=== PATIENT | female | born 1970 | race Caucasian/White ===

== ENCOUNTER 2016-10-18 18:26 | Inpatient (IN) | payer OTHER ==
[~2016-10-18] VITALS: Ht 162.6 cm; Wt 54.4 kg
--- NOTE | 2016-10-18 19:40 | NUR ---
PRE - ADMISSION NOTE : ADMISSION NOTE : The patient is a 46-year-old female who presents to [facility] for evaluation of medically supervised withdrawal from alcohol on 10/18/2016. Pt. is NKA, FULL CODE, on Reg. Diet. The patient reports recently achieving 10.5 months of sobriety but relapsed two days ago. She reports the cause of the relapse was due to increased negative emotions related to going through divorce, which led to an increased sense of cravings and cognitive dissonance. For the last two days, she reports consuming 750 mL of vodka on a daily basis, last used on the day of present admission. This morning while drinking, she reportedly sustained a ground level fall complicated by closed head injury to the posterior occipital with short-term loss of consciousness, reportedly <15 seconds, witnessed by her boyfriend. She has struggled with multiple attempts at sobriety, the longest being for eight years, which ended two years ago. She has been to multiple treatment programs in the past, the latest being at [facility]. She states her alcohol use has negatively impacted her life by impairing close relationships with family and negatively impacting her physical and mental health. She reports uncertainty about the barriers she will have to overcome to achieve full, long-term sobriety. The patient reports a history of withdrawal-induced seizures x10 , first episode in 2012. Upon assessment pt. is alert and oriented x4, the patient was acutely intoxicated without evidence of withdrawal, YE=172/70, JY=294, Temp=98.2, RR16, even and unlabored, SpO2=98% with RA. Nfhcps=609 lbs, Height=54 . CIWA=5 , last BM was on 10/16/2016 . Pt's skin is warm, dry , no open wounds visible, bruises on the chin, on both arms with scratches. Pt. will be admitted to the Unit.
[2016-10-18 20:21] LABS: *URINE HCG, QUAL NEGATIVE (NEGATIVE)
[2016-10-18 20:30] LABS: *AMPHETAMINE, URINE NEGATIVE (NEGATIVE); *BARBITURATE, URINE NEGATIVE (NEGATIVE); *CANNABINOID, URINE NEGATIVE (NEGATIVE); *COCCAINE, URINE NEGATIVE (NEGATIVE); *OPIATE, URINE NEGATIVE (NEGATIVE); *PHENCYCLIDINE SCREEN,URINE NEGATIVE (NEGATIVE)
--- NOTE | 2016-10-18 20:45 | NUR ---
ADMISSION NOTE : The patient is a 46-year-old female who presents to [facility] for evaluation of medically supervised withdrawal from alcohol on 10/18/2016. Pt. is NKA, FULL CODE, on Reg. Diet. . Pt. reports her PCP is Dr. Cruz from [place], [place]. The patient reports recently achieving 10.5 months of sobriety but relapsed two days ago. She reports the cause of the relapse was due to increased negative emotions related to going through divorce, which led to an increased sense of cravings and cognitive dissonance. For the last two days, she reports consuming 750 mL of vodka on a daily basis, last used on the day of present admission. This morning while drinking, she reportedly sustained a ground level fall complicated by closed head injury to the posterior occipital with short-term loss of consciousness, reportedly <15 seconds, witnessed by her boyfriend. She has struggled with multiple attempts at sobriety, the longest being for eight years, which ended two years ago. She has been to multiple treatment programs in the past, the latest being at [facility]. She states her alcohol use has negatively impacted her life by impairing close relationships with family and negatively impacting her physical and mental health. She reports uncertainty about the barriers she will have to overcome to achieve full, long-term sobriety. The patient reports a history of withdrawal-induced seizures x10 , first episode in 2012. Upon assessment pt. is alert and oriented x4, the patient was acutely intoxicated without evidence of withdrawal, RH=960/70, HR=082, Temp=98.2, RR16, even and unlabored, SpO2=98% with RA. Tfvojd=577 lbs, Height=54 . CIWA=5 , last BM was on 10/16/2016 . Pt's skin is warm, dry , no open wounds visible, bruises on the chin, on both arms with scratches. Pt was oriented to room and unit. Pt. was able to provide UDS sample , see results in the PC chart. Safety measures in place : bed on lowest position with side rails x2 up for safety, call light within reach. Will continue to monitor closely and offer help. SUBSTANCE USE HISTORY : ETOH/VODKA 750 ml QD PO since 10/16/2016 , last use on 10/18/2016 , uses since 1983 Occasionally ATIVAN 0.5mg PO x3/month since 10/2015, last use on 10/18/2016, uses since 2014. Tx HISTORY : X5 Detox X10 Rehab. Past medical history 1. Epilepsy, unspecified 2. Anxiety disorder, unspecified 3. Depressive disorder, unspecified 4. Chronic tobacco use 5. Alcohol use disorder Past Surgical History Surgical history: None Past Family History Family history 1. Alcohol use disorder 2. Anxiety disorder
[2016-10-18 21:18] LABS: BASOPHILS # (AUTO) 0.1 K/uL (0.0-8.0); BASOPHILS % (AUTO) 0.8 % (0.0-2.0); EOSINOPHILS # (AUTO) 0.1 K/uL (0.0-0.7); EOSINOPHILS % (AUTO) 0.6 % (0.0-7.0); HEMATOCRIT 47.7 % (37-47); HEMOGLOBIN 16.1 G/DL (12.0-16.0); LYMPHOCYTES # (AUTO) 2.6 K/UL (0.8-4.8); LYMPHOCYTES % (AUTO) 24.5 % (20.5-51.5); MEAN CORPUSCULAR HEMOGLOBIN 31.6 UUG (27.0-31.0); MEAN CORPUSCULAR HGB CONC 34 g/dL (32.0-37.0); MEAN CORPUSCULAR VOLUME 93.7 FL (81.0-99.0); MONOCYTES # (AUTO) 0.8 K/UL (0.1-1.30); MONOCYTES % (AUTO) 7.5 % (0.0-11.0); NEUTROPHILS % (AUTO) 66.6 % (38.5-71.5); PLATELET COUNT (AUTO) 289 K/UL (150-450); RED BLOOD CELL COUNT(AUTO) 5.09 MIL/UL (4.2-5.4); WHITE BLOOD COUNT (AUTO) 10.6 K/UL (4.0-11.2)
[2016-10-18 21:25] LABS: BILIRUBIN,TOTAL 0.3 mg/dL (0.2-1.0); CREATININE 0.8 mg/dL (0.6-1.3); POTASSIUM 3.8 mmol/L (3.5-5.1); TOTAL PROTEIN, SERUM 7.3 g/dL (6.4-8.2)
--- NOTE | 2016-10-18 21:30 | NUR ---
PRN BENADRYL, VISTARIL, MAALOX Pt. complains of sleeplessness, increased level of anxiety, heartburn. PRN BENADRYL, VISTARIL, MAALOX given as ordered. Safety measures in place : bed on lowest position with side rails x2 up for safety, call light within reach. Will continue to monitor closely and offer help.
--- NOTE | 2016-10-18 22:30 | NUR ---
RE-ASSESSMENT BENADRYL, VISTARIL, MAALOX Pt. is sleeping, RR=16, unlabored and even. Safety measures in place : bed on lowest position with side rails x2 up for safety, call light within reach. Will continue to monitor closely and offer help.
[2016-10-19] VITALS: BP 125/88
[2016-10-19] MEDS ORDERED: CARB400T8 PO (00:04)
[2016-10-19] MEDS ORDERED: CARB200T PO ×2 (00:04→00:18)
--- NOTE | 2016-10-19 06:48 | NUR ---
END OF SHIFT NOTE : The patient is a 46-year-old female who presents to [facility] for evaluation of medically supervised withdrawal from alcohol on 10/18/2016. Pt. is NKA, FULL CODE, on Reg. Diet. The patient reports recently achieving 10.5 months of sobriety but relapsed two days ago. Yesterday morning while drinking, she reportedly sustained a ground level fall complicated by closed head injury to the posterior occipital with short-term loss of consciousness, reportedly <15 seconds, witnessed by her boyfriend. The patient reports a history of withdrawal-induced seizures x10 , first episode in 2012. Pt's skin is warm, dry , no open wounds visible, bruises on the chin, on both arms with scratches. Pt remains compliant with the treatment plan. PRN BENADRYL, VISTARIL, MAALOX given during my shift. V/S remain WNL. RR=16, even and unlabored, lungs clear upon auscultation, abdomen soft and non- distended. Pt denies nausea, vomiting and diarrhea. LAST CIWA=5 at 0400 , GALVKX=198 ml, voided x1 , slept 8 hours. Safety measures in place : bed on lowest position with side rails x2 up for safety, call light within reach. Will continue to monitor closely and offer help.
--- NOTE | 2016-10-19 07:55 | NUR ---
START OF SHIFT Rcvd client from ongoing nurse, client is in room, she is a/o x4, she presents with anxious mood, flat affect, She reports chills, stomach cramps nausea, restless legs and fatigue. Client denies any V/D or SI/HI. VSs T 98.5, P 119, RR 18, BP 116/82, spO2 @ 96% pain 0/10. Encouraged client to increase fluid intake to facilitate detox. Encourage client to attend group therapy for skills to maintain sobriety. Client is a 46 yo female admitted for withdrawal from alcohol. MD ordered Lorazepam 1 mg PO q2h PRN CIWA 8-14, Lorazepam 2 mg PO q2h PRN CIWA 15+ and notify MD for withdrawal management. CIWA 5 @ 2400. PRN Maalox for Heartburn, Vistaril for anxiety and Benadryl for inability to sleep, she slept 8 hrs. He reports NKA, full code, regular. Client reports a history of withdrawal-induced seizure (last episode 2012). She is on seizure precautions. Call light within reach. Side rails up x2/padded, bed locked and in low position.
[2016-10-19 08:00] VITALS: BP 116/82
--- NOTE | 2016-10-19 08:09 | NUR ---
PRN Ativan 1mg PO, for CIWA 8, client with cold/chills, nausea and anxiety. Zofran 4mg SL administered for nausea, no episodes of emesis, jolly ciaran and saltine crackers at bedside. Call light within reach. Will continue to monitor.
--- NOTE | 2016-10-19 08:09 | NUR ---
TB administered to L forearm, client tolerated well.
--- NOTE | 2016-10-19 09:09 | NUR ---
Reassessment PRN Ativan 1mg PO and Zofran 4mg SL noted effective, client reports feeling better, less anxious CIWA 4, nausea resolved, no episodes of emesis, client is tolerating jolly ciaran and saltine well. Call light within reach. Will continue to monitor.
--- NOTE | 2016-10-19 13:32 | NUR ---
PRN Clonidine 0.1mg for anxiety, irritability. MB increased HR 120
[2016-10-19 13:42] VITALS: BP 119/76
--- NOTE | 2016-10-19 14:32 | NUR ---
Reassessment Clonidine 0.1mg Client is in bed, eyes closed, RR 16, even, non-labored. Will continue to monitor.
[2016-10-19 16:55] VITALS: BP 118/70
--- NOTE | 2016-10-19 19:20 | NUR ---
Start of Shift Patient Received. Patient is in bed, awake, alert and verbally responsive. Breathing even and non labored. Patient is a 46 year old female admitted on 10/18/16 for ETOH Dependence under the care of Dr. Lugo and was placed on PRN Medications for increased signs and symptoms of withdrawal. Patient verbalizes no known allergies, wishes to be full code, following a regular diet, placed on fall and seizure precautions.
--- NOTE | 2016-10-19 19:27 | NUR ---
END OF SHIFT Endorsed client to incoming nurse, client is a 46 yo female admitted for withdrawal from alcohol. Last CIWA 4 @ 1600. Client is scheduled for discharge tomorrow. PRN Zofran for nausea, Ativan 1mg CIWA 8, w/d symptoms lessen after an hour to CIWA 4, Clonidine for anxiety, irritability, noted effective. Adequate PO fluid intake 1600mL, void x 5. Client needed encouragement in group therapy, she was not compliant. She reports NKA, full code, regular. Client reports a history of withdrawal-induced seizure (last episode 2012). She is on seizure precautions. Call light within reach. Side rails up x2/padded, bed locked and in low position.
[2016-10-19 20:09] VITALS: BP 112/77
--- NOTE | 2016-10-19 20:20 | NUR ---
PRN Medication Administration Patient verbalizing increased heartburn and increased anxiety. PRN Maalox and Vistaril administered as per order. Will continue to monitor for effectiveness.
--- NOTE | 2016-10-19 21:20 | NUR ---
PRN Medication Reassessment Patient is in bed awake, alert and verbally responsive. Breathing even and non labored. Patient is able to verbalize medication was effective in minimizing heartburn and anxiety. PRN Vistaril and Maalox noted to be effective. Will continue to to monitor.
[2016-10-20 00:20] VITALS: BP 112/70
[2016-10-20 04:00] VITALS: BP 112/68
--- NOTE | 2016-10-20 07:21 | NUR ---
End of Shift Patient is in bed, awake, alert and verbally responsive. Breathing even and non labored. Patient is a 46 year old female admitted on 10/18/16 for ETOH Dependence under the care of Dr. Lugo and was placed on PRN Medications for increased signs and symptoms of withdrawal. Patient verbalizes no known allergies, wishes to be full code, following a regular diet, placed on fall and seizure precautions. Patient noted with Past medical history of seizures due to withdrawal, anxiety, and depression. Patient is set for discharge to go home today 10/20/16. Patient received PRN Vistaril and Maalox with medication noted to be effective. All needs attened to promptly. Will endorse to continue plan of care as ordered.
--- NOTE | 2016-10-20 07:47 | NUR ---
START OF SHIFT Rcvd client from ongoing nurse, client is in room, she is a/o x4, she presents with anxious mood, flat affect, She had already taken a shower, client denies n/v/d, she reports feeling tired, but anxious to go home. Client is being discharged this morning. Discharged instructions discuss, client verbalized understanding and does not have inquiries at this time. Client is a 46 yo female admitted for withdrawal from alcohol. PRN Maalox for Heartburn, Vistaril for anxiety, noted effective. Client slept 8 hrs. She reports NKA, full code, regular. Client reports a history of withdrawal-induced seizure (last episode 2012). She is on seizure precautions. Call light within reach. Side rails up x2/padded, bed locked and inlow position.
[2016-10-20 08:17] LABS: HEPATITIS B SURFACE AG Negative (Negative)
--- NOTE | 2016-10-20 09:40 | NUR ---
Discharge note Client was admitted for alcohol withdrawal. Client has a recent CIWA of 2. Client VS are WNL. Client LBM was 10/20/16. Client denies any SI/HI. Client verbalized her understanding of the discharge instructions. Client has no complaints at this time. Client discharge instructions, medications and all belongings returned to her. All needs addressed at this time. Client's ID band removed, client ambulated off of unit, she left facility via [facility] for home.
== END 2016-10-20 09:40 | disposition home or self-care (01) | DRG 895 ==
LOC: SRC 18:26
PROVIDERS: ADMIT Internal Medicine; ATTEND Internal Medicine
PROC: HZ2ZZZZ Detoxification Services for Substance Abuse Treatment (ICD-10-PCS; principal; 2016-10-18)
PROC: HZ31ZZZ Individual Counseling for Substance Abuse Treatment, Behavioral (ICD-10-PCS; 2016-10-19)
DX: F10.220 Alcohol dependence with intoxication, uncomplicated (principal); G40.919 Epilepsy, unspecified, intractable, without status epilepticus; S06.9X1A Unspecified intracranial injury with loss of consciousness of 30 minutes or less, initial encounter; W18.30XA Fall on same level, unspecified, initial encounter; Y90.7 Blood alcohol level of 200-239 mg/100 ml; Y92.89 Other specified places as the place of occurrence of the external cause; F41.9 Anxiety disorder, unspecified
CPT/HCPCS: 36415; 80307; 83735; 84703; 85025; 86580; 86592; 86705; 86803; 87340; 87806; G0480; J3411; Q0162; Q0163

== ENCOUNTER 2016-10-18 20:46 | Outpatient (CLI) | payer BC, OTHER ==
[2016-10-19] MEDS ORDERED: CARB400T8 PO (00:04)
[2016-10-19] MEDS ORDERED: CARB200T PO ×2 (00:04→00:18)
== END 2016-10-18 23:59 | disposition other institution (70) ==
LOC: CT 20:46
PROVIDERS: ATTEND Internal Medicine
DX: S09.90XA Unspecified injury of head, initial encounter (principal); X58.XXXA Exposure to other specified factors, initial encounter; Y93.89 Activity, other specified; Y92.89 Other specified places as the place of occurrence of the external cause; Y99.8 Other external cause status
CPT/HCPCS: 70450

== ENCOUNTER 2016-12-22 12:49 | Inpatient (IN) | payer OTHER ==
[~2016-12-22] VITALS: Ht 162.6 cm; Wt 63.5 kg
[~2016-12-22 12:49] MED LIST: CARB200T PO
[2016-12-22] MEDS ORDERED: THIAMINE HCL 200 MG/2 ML VIAL IM ONE (21:15)
[2016-12-22] MEDS ORDERED: MIRALAX 17 GM POWD.PACK PO PRN (21:15)
[2016-12-22] MEDS ORDERED: diphenhydrAMINE 50 MG CAPSULE PO PRN (21:15)
[2016-12-22] MEDS ORDERED: PATIENT MAY USE OWN MED- MD OK PO SCH (21:15)
[2016-12-22] MEDS ORDERED: ACETAMINOPHEN 325 MG TABLET PO PRN (21:15)
[2016-12-22] MEDS ORDERED: CLONIDINE HCL 0.1 MG TABLET PO PRN (21:15)
[2016-12-22] MEDS ORDERED: LOPERAMIDE HCL 2 MG CAPSULE PO PRN ×2 (21:15)
[2016-12-22] MEDS ORDERED: DICYCLOMINE HCL 20 MG TABLET PO PRN (21:15)
[2016-12-22] MEDS ORDERED: MAGNESIUM HYDROXIDE 30 ML LIQUID UDC PO PRN (21:15)
[2016-12-22] MEDS ORDERED: ONDANSETRON ODT 4 MG TAB.RAPDIS SL PRN (21:15)
[2016-12-22] MEDS ORDERED: MAG HYDROX/AL HYDROX/SIMETH 30 ML LIQUID UDC PO PRN (21:15)
[2016-12-22] MEDS ORDERED: ONDANSETRON 4 MG/2 ML VIAL IM PRN (21:15)
[2016-12-22] MEDS ORDERED: IBUPROFEN 600 MG TABLET PO PRN (21:15)
[2016-12-22] MEDS ORDERED: LORAZEPAM 1 MG TABLET PO PRN ×2 (21:15)
[2016-12-22] MEDS ORDERED: KETOROLAC TROMETHAMINE 30 MG INJ IM PRN (21:15)
[2016-12-22] MEDS ORDERED: LORAZEPAM 2 MG/1 ML VIAL IM PRN (21:15)
--- NOTE | 2016-12-22 21:15 | NUR ---
Pre-Admission Note: Patient assessed in intake office at 21:15 on 12/22/2016. Patient is with unsteady gait, oriented X4. Patient states that she is here to safely detox from ETOH. VSS. Pt noted with edematous and bruised left fourth finger and puncture to lower lip. Patient instructed on unit protocol of vitals Q4H and CIWA assessments. Patient verbalized understanding and agreement. Patient also instructed on policy regarding destruction of any controlled substances/prescriptions brought to facility, and handling of all medications. Patient verbalized understanding and agreement.
--- NOTE | 2016-12-22 21:30 | NUR ---
Admission Patient is a 46 year old female, from [facility], presented to [facility] to safely received treatment for her Alcohol use. She was escorted on to unit at 3 by intake department via wheel chair. Skin check and body check rendered and skin noted with abrasion to lower lip and possible dislocated left ring finger due to S/P fall. Patient was able to provide admission urine drug screen prior to arrival to unit. Patient is alert and oriented. Breathing is even and non labored. Vital signs rendered and noted as: 122/56, 102, 18, 98.0, 100%, 7/10 due to left ring finger. Patients height noted at 5'4 and weight noted at 140lbs. Patient verbalized No known allergies, wishes to be full code, following a regular diet, placed on fall and seizure precautions. Speech is clear but patient is noted to repeat herself on several occasions and often forgetful of questions asked. Patient is noted to be restless and keeps verbalizing "gosh my finger looks really bad." Lung sounds clear with no cough noted. LBM noted 12/21/16. Patient denies suicidal and homicidal ideations. Patient noted to be unsteady. wheel chair provided. Patient also placed on 1:1 for stafey. Patient verbalizes only past medical history of epilepsy and is on current routine home medications, anxiety, and depression. Home medications reconciled. Patient verbalizes her use as: 1. ETOH- Vodka, for the past two days, drinking 350mls PO, last drink noted to be prior to admission Patient verbalizes her signs and symptoms of withdrawal as "I feel like crap." Patient noted with multiple treatment admissions with the last admission verbalized as [facility] from Oct 18-2016. Admission CIWA noted to be 9. All information relayed to MD with orders placed including PRN Medications for increased signs and symptoms of withdrawal. Labs to be rendered. Stat x-ray orders. All needs attended to promptly. Will continue plan of care as ordered.
[2016-12-22 21:31] LABS: *URINE HCG, QUAL NEGATIVE (NEGATIVE)
[2016-12-22 21:42] LABS: *AMPHETAMINE, URINE NEGATIVE (NEGATIVE); *BARBITURATE, URINE NEGATIVE (NEGATIVE); *CANNABINOID, URINE NEGATIVE (NEGATIVE); *COCCAINE, URINE NEGATIVE (NEGATIVE); *OPIATE, URINE NEGATIVE (NEGATIVE); *PHENCYCLIDINE SCREEN,URINE NEGATIVE (NEGATIVE)
[2016-12-22 21:45] LABS: BASOPHILS # (AUTO) 0.1 K/uL (0.0-8.0); BASOPHILS % (AUTO) 0.8 % (0.0-2.0); EOSINOPHILS # (AUTO) 0.1 K/uL (0.0-0.7); EOSINOPHILS % (AUTO) 1.2 % (0.0-7.0); HEMATOCRIT 46.7 % (37-47); HEMOGLOBIN 15.9 G/DL (12.0-16.0); LYMPHOCYTES # (AUTO) 3.9 K/UL (0.8-4.8); LYMPHOCYTES % (AUTO) 35.4 % (20.5-51.5); MEAN CORPUSCULAR HEMOGLOBIN 32.1 UUG (27.0-31.0); MEAN CORPUSCULAR HGB CONC 34 g/dL (32.0-37.0); MEAN CORPUSCULAR VOLUME 94.7 FL (81.0-99.0); MONOCYTES # (AUTO) 0.6 K/UL (0.1-1.30); MONOCYTES % (AUTO) 5.9 % (0.0-11.0); NEUTROPHILS # (AUTO) 6.2 K/UL (1.8-8.9); NEUTROPHILS % (AUTO) 56.7 % (38.5-71.5); PLATELET COUNT (AUTO) 266 K/UL (150-450); RED BLOOD CELL COUNT(AUTO) 4.93 MIL/UL (4.2-5.4); WHITE BLOOD COUNT (AUTO) 10.9 K/UL (4.0-11.2)
[2016-12-22 21:46] VITALS: BP 122/56
[2016-12-22] MEDS ORDERED: THIAMINE HCL 200 MG/2 ML VIAL ONE (21:48)
[2016-12-22 21:57] LABS: BILIRUBIN,TOTAL 0.3 mg/dL (0.2-1.0); CREATININE 0.7 mg/dL (0.6-1.3); POTASSIUM 3.8 mmol/L (3.5-5.1); TOTAL PROTEIN, SERUM 6.7 g/dL (6.4-8.2)
--- NOTE | 2016-12-22 22:45 | NUR ---
Left Hand/Third Finger Dislocation/ED Transfer: X-ray to left hand results relayed to Dr Lugo, with order to transfer patient to ED. Patient consented to transfer, and patient left the unit via wheelchair at 22:45. Patient accompanied by EDGAR Morel. Report given to Charge NurseGloria in ED. Addendum: 12/22/16 at 2356 by TIAN DE SANTIAGO RN Error: Dislocation is to FOURTH finger
--- NOTE | 2016-12-22 23:53 | NUR ---
ED Return: Patient returned to unit via wheelchair accompanied by EDGAR Morel at 2353.
[2016-12-23] VITALS: BP 123/62
[2016-12-23] MEDS ORDERED: CARB200T PO ×2 (00:12)
[2016-12-23 04:15] VITALS: BP 112/57
--- NOTE | 2016-12-23 07:30 | NUR ---
START OF SHIFT Received report from night nurse. 46 year old female patient admitted on 12/22/16 for ETOH withdrawals. Pt reports hx of epilepsy, anxiety and depression. Pt had a fall prior to admission and has a lower lip wound and dislocation of finger, pt was sent to ER, pt finger is now in a splint, pt does not wants anything for pain she just reports "it is a little sore, but I am fine." No PRNs needed or administered, most recent CIWA is 6. V/S remain WNL. All needs met at this time. Pt education provided on detox process. Pt verbalizes understanding, but denies symptoms of withdrawal at this time. Will continue to monitor.
--- NOTE | 2016-12-23 07:35 | NUR ---
End of Shift Patient is in bed sleeping. Breathing even and non labored. Patient is a 6 year old female admitted on 12/22/16 for ETOH Dependence under the care of Dr. Lugo. Patient is currently receiving PRN medications for increased signs and symptoms of withdrawal. Patient verbalizes no known allergies, wishes to be full code, following a regular diet. Placed on fall and seizures precautions. Past medical history of anxiety, depression, and epilepsy. Patient noted upon admission with swollen left third finger due to s/p fall. Stat x-ray rendered and noted with dislocation. Patient sent to ER and finger was reduced and splinted. Patient was medicated locally for pain and tolerated well. Patient denied pain throughout remainder of shift. No PRN medciations administered. Last noted CIWA 6. All needs attended to promptly. Will endorse to continue plan of care as ordered.
[2016-12-23] MEDS ORDERED: THIAMINE HCL 100 MG TABLET PO SCH (09:00)
[2016-12-23] MEDS ORDERED: PATIENT MAY USE OWN MED- MD OK PO SCH (09:00)
[2016-12-23] MEDS ORDERED: MULTIVITAMINS,THERAPEUTIC TABLET PO SCH (09:00)
[2016-12-23] MEDS ORDERED: FOLIC ACID 1 MG TABLET PO SCH (09:00)
[2016-12-23] MEDS ORDERED: TUBERCULIN,PURIF.PROT.DERIV. 5 TU/0.1 ML TEST ID ONE (09:00)
[2016-12-23 09:15] VITALS: BP 116/71
[2016-12-23] MEDS ORDERED: ACAMPROSATE CALCIUM 333 MG TABLET.DR PO ONE (13:00)
[2016-12-23 13:24] VITALS: BP 118/70
--- NOTE | 2016-12-23 14:35 | NUR ---
PRN MAALOX Pt c/o of heartburn, PRN Maalox administered as ordered, will reassess.
[2016-12-23] MEDS ORDERED: ACAMPROSATE CALCIUM PO (15:07)
[2016-12-23] MEDS ORDERED: IBUP-1955 PO (15:08)
--- NOTE | 2016-12-23 15:35 | NUR ---
REASSESSMENT Pt states maalox was effective, denies heartburn at this time.
[2016-12-23 16:57] VITALS: BP 136/78
--- NOTE | 2016-12-23 17:07 | NUR ---
D/C NOTES Pt is A/O x4. V/S remain WNL. Pt denies SI/HI or hallucinations. Pt shows no s/s of acute withdrawal at this time, and is stable. MD has medically cleared pt for d/c . Education on Hepatitis C, smoking cessation and medication side effects provided. Pt verbalizes understanding. All pt belongings are in belonging bag, including prescriptions, includinghome medications. Refuses PNU vaccination. Pt is being accompanied by [facility] [employer] at this time to be transported to rehab. All needs met.
[2016-12-24 09:06] LABS: HEPATITIS B SURFACE AG Negative (Negative)
== END 2016-12-23 17:07 | disposition home or self-care (01) | DRG 897 ==
LOC: SRC 20:15
PROVIDERS: ADMIT Internal Medicine; ATTEND Internal Medicine
PROC: HZ2ZZZZ Detoxification Services for Substance Abuse Treatment (ICD-10-PCS; principal; 2016-12-22)
DX: F10.220 Alcohol dependence with intoxication, uncomplicated (principal); G40.919 Epilepsy, unspecified, intractable, without status epilepticus; W19.XXXA Unspecified fall, initial encounter; Z81.1 Family history of alcohol abuse and dependence; Y90.9 Presence of alcohol in blood, level not specified; F17.210 Nicotine dependence, cigarettes, uncomplicated; F41.9 Anxiety disorder, unspecified; F32.9 Major depressive disorder, single episode, unspecified; S00.511A Abrasion of lip, initial encounter; S63.285A Dislocation of proximal interphalangeal joint of left ring finger, initial encounter; Y92.89 Other specified places as the place of occurrence of the external cause
CPT/HCPCS: 36415; 73140; 80307; 83735; 84703; 85025; 86592; 86705; 86803; 87340; 87806; G0480; J3411

== ENCOUNTER 2016-12-22 22:34 | Emergency (ER) | payer BC, OTHER ==
[~2016-12-22] VITALS: Ht 162.6 cm; Wt 59.0 kg
--- NOTE | 2016-12-22 22:49 | NUR ---
PATIENT BR[facility] FROM [facility]. PATIENT WITH C/O LEFT HAND 4TH DIGIT PAIN, PATIENT DOES NOT REMEMBER WHAT HAPPENED.
[2016-12-22] MEDS ORDERED: LIDOCAINE HCL 1% 20 ML VIAL ONE (23:24)
[2016-12-22] MEDS: LIDOCAINE HCL 1% 20 ML VIAL IJ ONE (23:27)
[2016-12-22 23:53] VITALS: BP 120/63
--- NOTE | 2016-12-22 23:54 | NUR ---
[facility] cond[facility]. Written and verbal after care instructions given. Patient verbalizes understanding of instructions. PATIENT LEFT ACCOMPANIED BY [facility] STAFF.
[2016-12-23] MEDS ORDERED: CARB200T PO ×2 (00:12)
[2016-12-23] MEDS ORDERED: ACAMPROSATE CALCIUM PO (15:07)
[2016-12-23] MEDS ORDERED: IBUP-1955 PO (15:08)
== END 2016-12-22 23:54 | disposition home or self-care (01) ==
LOC: ER 22:35
DX: S63.285A Dislocation of proximal interphalangeal joint of left ring finger, initial encounter (principal); X58.XXXA Exposure to other specified factors, initial encounter; Y93.89 Activity, other specified; Y92.89 Other specified places as the place of occurrence of the external cause; Y99.8 Other external cause status
CPT/HCPCS: 26770; 73140; 99284; A4663; J3490

== ENCOUNTER 2017-09-22 10:17 | Inpatient (IN) | payer OTHER ==
[~2017-09-22] VITALS: Ht 162.6 cm; Wt 52.6 kg
[~2017-09-22 10:17] MED LIST changes: +ACAMPROSATE CALCIUM PO; +IBUP-1955 PO
[2017-09-22] MEDS ORDERED: DIAZEPAM 10 MG TABLET PO PRN ×2 (12:30)
[2017-09-22] MEDS ORDERED: ONDANSETRON 4 MG/2 ML VIAL IM PRN (12:30)
[2017-09-22] MEDS ORDERED: MIRALAX 17 GM POWD.PACK PO PRN (12:30)
[2017-09-22] MEDS ORDERED: METHOCARBAMOL 750 MG TABLET PO PRN (12:30)
[2017-09-22] MEDS ORDERED: MAGNESIUM HYDROXIDE 30 ML LIQUID UDC PO PRN (12:30)
[2017-09-22] MEDS ORDERED: IBUPROFEN 600 MG TABLET PO PRN (12:30)
[2017-09-22] MEDS ORDERED: diphenhydrAMINE 50 MG CAPSULE PO PRN (12:30)
[2017-09-22] MEDS ORDERED: BUPRENORPHINE HCL 2 MG TAB.SUBL SL PRN (12:30)
[2017-09-22] MEDS ORDERED: MAG HYDROX/AL HYDROX/SIMETH 30 ML LIQUID UDC PO PRN (12:30)
[2017-09-22] MEDS ORDERED: DIAZEPAM 5 MG TABLET PO PRN (12:30)
[2017-09-22] MEDS ORDERED: CLONIDINE HCL 0.1 MG TABLET PO PRN (12:30)
[2017-09-22] MEDS ORDERED: HYDR-3326 PO (12:43)
[2017-09-22] MEDS ORDERED: CARB200T PO (12:43)
[2017-09-22] MEDS ORDERED: LORA1TAB PO (12:43)
[2017-09-22 13:22] LABS: BASOPHILS # (AUTO) 0.1 K/uL (0.0-8.0); BASOPHILS % (AUTO) 0.7 % (0.0-2.0); EOSINOPHILS % (AUTO) 0.3 % (0.0-7.0); HEMATOCRIT 46.8 % (31.2-41.9); HEMOGLOBIN 16.2 g/dL (10.9-14.3); LYMPHOCYTES # (AUTO) 1.4 K/uL (20.0-40.0); LYMPHOCYTES % (AUTO) 11.3 % (20.5-51.5); MEAN CORPUSCULAR HEMOGLOBIN 32.9 uug (24.7-32.8); MEAN CORPUSCULAR HGB CONC 35 g/dL (32.3-35.6); MEAN CORPUSCULAR VOLUME 95.2 fL (75.5-95.3); MONOCYTES # (AUTO) 0.8 K/uL (2.0-10.0); MONOCYTES % (AUTO) 6.5 % (0.0-11.0); NEUTROPHILS # (AUTO) 10.1 K/uL (1.8-8.9); NEUTROPHILS % (AUTO) 81.2 % (38.5-71.5); PLATELET COUNT (AUTO) 273 K/uL (179-408); RED BLOOD CELL COUNT(AUTO) 4.91 MIL/uL (3.63-4.92); WHITE BLOOD COUNT (AUTO) 12.5 K/uL (3.8-11.8)
[2017-09-22 13:24] LABS: BILIRUBIN,TOTAL 0.3 mg/dL (0.2-1.0); CREATININE 0.8 mg/dL (0.6-1.3); MAGNESIUM 1.8 mg/dL (1.8-2.4); TOTAL PROTEIN, SERUM 6.5 g/dL (6.4-8.2)
[2017-09-22] MEDS ORDERED: 6 DAY PHENOBARBITAL TAPER -SERENITY PROTOCOL PO PRN (13:45)
[2017-09-22] MEDS ORDERED: 5 DAY TAPER BUPRENORPHINE -SERENITY PROTOCOL SL PRN (14:00)
[2017-09-22 15:09] LABS: *AMPHETAMINE, URINE NEGATIVE (NEGATIVE); *BARBITURATE, URINE NEGATIVE (NEGATIVE); *CANNABINOID, URINE NEGATIVE (NEGATIVE); *COCCAINE, URINE NEGATIVE (NEGATIVE); *OPIATE, URINE POSITIVE (NEGATIVE); *PHENCYCLIDINE SCREEN,URINE NEGATIVE (NEGATIVE)
[2017-09-22 15:49] LABS: *URINE HCG, QUAL NEGATIVE (NEGATIVE)
[2017-09-22] MEDS ORDERED: THIAMINE HCL 200 MG/2 ML VIAL IM ONE (15:57)
[2017-09-22] MEDS ORDERED: CARBAMAZEPINE 200 MG TABLET PO SCH (17:00)
[2017-09-22] MEDS: ONDANSETRON ODT 4 MG TAB.RAPDIS SL PRN (19:54)
[2017-09-22 20:00] VITALS: BP 117/65
[2017-09-23] VITALS: BP 110/67
[2017-09-23 04:00] VITALS: BP 101/66
[2017-09-23] MEDS: ONDANSETRON ODT 4 MG TAB.RAPDIS SL PRN (05:37)
[2017-09-23] MEDS ORDERED: DICYCLOMINE HCL 20 MG TABLET PO SCH (06:00)
[2017-09-23] MEDS ORDERED: LOPERAMIDE HCL 2 MG CAPSULE PO PRN ×2 (06:00)
[2017-09-23 08:00] VITALS: BP 127/80
[2017-09-23] MEDS ORDERED: LORAZEPAM 2 MG/1 ML VIAL IM PRN (08:45)
[2017-09-23] MEDS ORDERED: MULTIVITAMINS,THERAPEUTIC TABLET PO SCH (09:00)
[2017-09-23] MEDS ORDERED: TUBERCULIN,PURIF.PROT.DERIV. 5 TU/0.1 ML TEST ID ONE (09:00)
[2017-09-23] MEDS ORDERED: THIAMINE HCL 100 MG TABLET PO SCH (09:00)
[2017-09-23] MEDS ORDERED: FOLIC ACID 1 MG TABLET PO SCH (09:00)
[2017-09-23] MEDS ORDERED: BUPRENORPHINE HCL 2 MG TAB.SUBL SL SCH (09:00)
[2017-09-23] MEDS ORDERED: PHENOBARBITAL 60 MG TABLET PO SCH (09:00)
[2017-09-24] MEDS ORDERED: BUPRENORPHINE HCL 2 MG TAB.SUBL SL SCH (09:00)
[2017-09-24] MEDS ORDERED: PHENOBARBITAL 60 MG TABLET PO SCH (09:00)
[2017-09-25] MEDS ORDERED: PHENOBARBITAL 60 MG TABLET PO SCH (09:00)
[2017-09-25] MEDS ORDERED: BUPRENORPHINE HCL 2 MG TAB.SUBL SL SCH ×2 (09:00→15:00)
[2017-09-26] MEDS ORDERED: PHENOBARBITAL 60 MG TABLET PO SCH (09:00)
[2017-09-26] MEDS ORDERED: BUPRENORPHINE HCL 2 MG TAB.SUBL SL SCH (09:00)
[2017-09-27] MEDS ORDERED: BUPRENORPHINE HCL 2 MG TAB.SUBL SL SCH (09:00)
[2017-09-27] MEDS ORDERED: PHENOBARBITAL 60 MG TABLET PO SCH (09:00)
== END 2017-09-23 09:19 | disposition left against medical advice (07) | DRG 894 ==
LOC: SRC 11:52
PROVIDERS: ADMIT Internal Medicine; ATTEND Internal Medicine
PROC: HZ2ZZZZ Detoxification Services for Substance Abuse Treatment (ICD-10-PCS; principal; 2017-09-22)
DX: F10.230 Alcohol dependence with withdrawal, uncomplicated (principal); E87.1 Hypo-osmolality and hyponatremia; F11.23 Opioid dependence with withdrawal; F13.230 Sedative, hypnotic or anxiolytic dependence with withdrawal, uncomplicated; Y90.8 Blood alcohol level of 240 mg/100 ml or more; G40.909 Epilepsy, unspecified, not intractable, without status epilepticus; G47.00 Insomnia, unspecified; F41.1 Generalized anxiety disorder; M75.100 Unspecified rotator cuff tear or rupture of unspecified shoulder, not specified as traumatic; G89.29 Other chronic pain; D72.829 Elevated white blood cell count, unspecified
CPT/HCPCS: 80307; 83690; 83735; 84703; 85025; 86592; 86705; 86803; 87340; 87806; A4663; G0480; J2405; J3411; Q0162